=== PATIENT | female | born 1985 | race Caucasian/White ===

== ENCOUNTER 2019-04-18 04:54 | Inpatient (IN) | payer OTHER, SELFPAY ==
[2019-04-18] VITALS (20 sets, daily range): BP systolic 108–137; BP diastolic 67–80; PULSE 60–80; RESP 16–20; TEMP 36.1–37.3; O2SAT 95–100; BMI 42.1
[2019-04-18] MEDS: Lactated Ringers 1,000 ML 999 ML IV (05:35)
[2019-04-18 05:55] LABS: Hematocrit 35.3 % (37-47); Hemoglobin 11.9 g/dL (12.0-15.0); Mean Corp Hgb Conc 33.7 g/dL (32-36); Mean Corpuscular Hgb 28.4 pg (27.0-32.0); Mean Corpuscular Volume 84.2 fL (81-99); Mean Platelet Vol. 12.5 fl (6.2-12.0); Platelet Count 161 K/mm3 (150-450); RBC Distribution Width CV 14.4 % (11.6-14.6); RBC Distribution Width SD 43.6 fl (35.1-43.9); Red Blood Count 4.19 M/mm3 (4.2-5.4); White Blood Count 8.4 K/mm3 (4.4-11.0)
[2019-04-18 06:06] LABS: Protein, Urine (Random) 11.9 mg/dL (<11.9); Protein:Creat Ratio 119 mg/g CRE (0-200)
[2019-04-18 06:11] LABS: AST(SGOT) 16 U/L (15-37); Alanine Aminotransfer ALT/SGPT 14 U/L (13-56); Creatinine, Serum 0.67 mg/dL (0.55-1.02); EST Glomerular Filtration Rate 108 mL/min (>60); Est Glom Filt Rate - Afr Amer 131 mL/min (>60); Estimated Creatinine Clearance 107.47 ml/min; Uric Acid 6.8 mg/dL (2.6-6.0)
[2019-04-18 06:34] LABS: International Normalized Ratio 0.9; Prothrombin Time (Protime)PT. 12.1 SECONDS (11.7-14.9)
[2019-04-18 06:35] LABS: Partial Thromboplast Time 26.4 Seconds (24.1-36.2)
[2019-04-18] MEDS: Lactated Ringers 1,000 ML 150 ML IV (06:36)
[2019-04-18] MEDS: Sodium Citrate/Citric Acid 30 ML UDC PO (07:06)
[2019-04-18] MEDS: Cefazolin 2 GM in 0.9% Normal Saline 100 ML IV (07:23)
--- NOTE | 2019-04-18 07:36 | OP.PCM_ITS ---
Report of Operation Date of Procedure: 04/18/19 Surgery/Procedure Performed:: Repeat section with bilateral tubal ligation Description of Surgical Findings:: Normal maternal uterus and adnexa special education resource room teacher: Giselle Castro Type of Anesthesia:: Spinal Specimen's removed: Placenta Delivery Final JACLYN: 04/25/19 Gestational age: 39 Weeks and 0 Days Indications for : Repeat Elective , Desires elective sterilization Description of Procedure: Patient taken to OR where spinal anesthesia was placed. She was prepped and draped in normal sterile fashion in a dorsal supine position with a leftward tilt. After ensuring adequacy of anesthesia the Pfannensteil skin incision was made and carried through to the underlying fascia w/ a bovie. The fascia was incised in the midline and carried laterally with the Robert scissors. The rectus muscles were in the midline and the peritoneum was entered sharply. The bladder flap was dissected down with the Metzenbaum scissors and blunt dissection. The uterine incision was made with the scalpel and extended lateral ly w/ blunt dissection. The fetus was vertex and the head was brought to the incision in the flexed position. With good fundal pressure the head delivered The head was gently guided to allow delivery of anterior & posterior shoulders. No excess traction placed on head. Body delivered easily. The cord was clamped and cut after 1 minute delay and the handed off to waiting RN. The placenta was delivered w/ gentle traction and fundal massage and the uterus was exteriorized and cleared of all clots and debris. The uterine incision was closed with 1 vicryl suture in a running locked fashion. A second layer monocryl was used to imbricate the first layer and obtain hemostasis. 2 additional figure of 8 sutures were needed to obtain hemostasis. The uterus was returned to the peritoneal cavity which was cleared of all clots and debris. The right fallopian tube was grasped & doubly suture ligated. Tube segment excised & hemostasis confirmed at tubal site. Process repeated on the left side & again hemostasis confirmed. Pelvis was irrigated. The uterine incision was reexamined and found to be hemostatic. Some augusta was placed over the uterine incision due to the denuded areas. Tubal ligation sites were examined & again confirmed to be hemostatic & sutures intact. The parietal peritoneum was reapproximated with running 1 vicryl figure suture. The fascia was closed with looped PDS suture in a running standard fashion. The subcutaneous tissue was examined, any bleeding bovie cauterized. The subcutaneous tissue was reapproximated with 3-0 vicryl suture. The skin was closed in a subcuticular fashion by the GEODUCK DIVER with me present in the labor and delivery suite. I performed the remainder of the procedure w/ assistance. Amniotic Membrane Rupture Type: Artificial Amniotic Fluid Description: Clear Placenta Disposition: [facility] Drain: Gonsalves to straight drain Fluids Replaced: 2,000 ml Cord Entanglement: None Cord Vessel Description: 3 Vessels Infant Gender: Male - Hilario (1 minute): 9 (5 minute): 10 Delayed cord clamping: Yes Pre-op Antibiotic Given: Ancef 2 grams IV x1 Complications: None - Admit VTE Documentation VTE Present on Admission: No
--- NOTE | 2019-04-18 07:57 | FALS_PTH ---
PATIENT: ISADORA KEBEDE LOC: [facility] U#:[id number] AGE/SX: 33/F ROOM: WP010 RE04/18/[address]: Dr. Kenny France MD : 1985 BED: 1 DIS: 04/20/2019 SPEC #: [id number] RECD: 04/18/19 09:28 STATUS: MERCEDES REHussain #: [id number] EMMIE: 04/18/19 07:[address]: Kenny France DEPT: SURGICAL PATHOLOGY RECD BY: Leobardo Carty ENTERED: 04/18/19 10:20 SP TYPE: FALL TUBES OTHR DR: No Primary Care Phys Tissues: Fallopian tube Procedures: Surgery Specimen Level II HEADER OPERATION: Tubal ligation PRE-OP DIAGNOSIS: Sterilization TISSUE SUBMITTED: Fallopian tubes MICROSCOPIC DIAGNOSIS Bilateral fallopian tubes, tubal ligation: Completely transected segment of fallopian tubes, no pathologic diagnosis. SARAH:сергей 04/19/19 MICROSCOPIC DESCRIPTION Slides are reviewed. GROSS DESCRIPTION Received is one container labeled with the patient's name and not further designated. The specimen consists of two tubular pieces of encarnacion soft tissue with one of the pieces showing a suture which is not identified. The piece without suture measures 1 cm in length and 0.5 cm in diameter. The second piece with suture measures 0.7 cm in length and 0.4 cm in diameter. The entire specimen is submitted in two cassettes as follows: 1 - piece without suture, 2 - piece with suture. Both pieces will be sectioned after embedding. / SARAH:сергей 04/18/19 TC:4 CPT: 94693 x2
[2019-04-18 09:26] LABS: Pathology Specimen OB SEE PATHOLOGY REPORT
[2019-04-18] MEDS: Oxytocin 30 units/NS 500 ml 30 UNITS/500 ML IV.SOLN 167 UNITS IV (09:27)
[2019-04-18] MEDS: Lactated Ringers 1,000 ML 100 ML IV ×2 (12:30→21:51)
[2019-04-18] MEDS: Ketorolac 30 MG/ML Syringe IV ×2 (14:27→20:14)
[2019-04-18] MEDS: Ondansetron ODT 4 MG Tablet PO (18:25)
[2019-04-19] VITALS (10 sets, daily range): BP systolic 95–137; BP diastolic 61–84; PULSE 78–85; RESP 16–18; TEMP 35.5–37.1; O2SAT 97–100
[2019-04-19] MEDS: Ketorolac 30 MG/ML Syringe IV ×4 (02:40→20:13)
--- NOTE | 2019-04-19 03:02 | NURSING ---
report given to Whit PEDROZA
[2019-04-19] MEDS: 0.9% Saline Lock 10 ML Syringe 5 ML IV ×4 (04:07→20:13)
[2019-04-19 04:24] LABS: Hematocrit 27.2 % (37-47); Hemoglobin 8.9 g/dL (12.0-15.0); Mean Corp Hgb Conc 32.7 g/dL (32-36); Mean Corpuscular Volume 85.5 fL (81-99); Mean Platelet Vol. 12.1 fl (6.2-12.0); Platelet Count 114 K/mm3 (150-450); RBC Distribution Width CV 14.4 % (11.6-14.6); RBC Distribution Width SD 44.9 fl (35.1-43.9); Red Blood Count 3.18 M/mm3 (4.2-5.4); White Blood Count 7.6 K/mm3 (4.4-11.0)
--- NOTE | 2019-04-19 07:31 | PCM.PN.OB ---
Subjective: No complaints - Physical Exam General: Alert, Oriented x3 Abdomen: Soft, Non Tender, Non-Distended - ff mid & below umb Extremities: No Calf Tenderness Neurological: Cranial nerves II-XII grossly intact Vital Signs Temp Pulse Resp BP Pulse Ox 96 F L 78 16 100/64 97 04/19/19 04:00 04/19/19 04:00 04/19/19 05:55 04/19/19 04:00 04/19/19 05:55 Oxygen Delivery Method Room Air Weight: 253 lb 4 oz Body Mass Index (BMI) 42.1 Intake and Output for Last 24 Hours 04/17/19 04/18/19 04/19/19 23:59 23:59 23:59 Intake Total 7785.00 / 7785.00 1604.33 / 1604.33 Output Total 1175 / 1175 600 / 600 Balance 6610.00 / 6610.00 1004.33 / 1004.33 Laboratory Tests Past 24 Hrs 04/19/19 04:15 WBC 7.6 RBC 3.18 L Hgb 8.9 L Hct 27.2 L MCV 85.5 MCH 28.0 MCHC 32.7 RDW Std Deviation 44.9 H RDW Coeff of Delilah 14.4 Plt Count 114 L MPV 12.1 H Medical Necessity - Tobacco Use Smoking Status: Former smoker Assessment/Plan POD#2 GI - ADAT. Heme - HDS. Hb & platelets mildly decreased. Will repeat CBC tomorrow AM. - d/c shady ID - AF, no signs infection. Chtn - BP's normal. Routine care.
--- NOTE | 2019-04-19 12:29 | NURSING ---
1000 caruso cath dc'ed pt oob up to walk; pt gait steady
[2019-04-19] MEDS: Ferrous Sulfate 325 MG Tablet PO (12:39)
[2019-04-19] MEDS: Senna/Docusate Sodium 1 Tablet PO (12:39)
[2019-04-20 02:00] VITALS: BP 131/80; PULSE 80; RESP 16; TEMP 36.2
[2019-04-20] MEDS: 0.9% Saline Lock 10 ML Syringe 5 ML IV ×2 (02:01→08:42)
[2019-04-20] MEDS: Ketorolac 30 MG/ML Syringe IV ×2 (02:01→08:42)
[2019-04-20 06:06] LABS: Absolute Lymphocyte Count 1.91 X10^3/uL (0.83-4.51); Absolute Neutrophil Count 4.5 X10^3/uL (2.0-7.7); Basophil# 0.02 X10^3/uL; Basophil% 0.3 % (0-1); Eosinophils% 1.5 % (0-5); Hematocrit 28.1 % (37-47); Hemoglobin 9.3 g/dL (12.0-15.0); Lymphocyte # 1.91 X10^3/ul (4.0); Lymphocyte % 28.1 % (19-41); Mean Corp Hgb Conc 33.1 g/dL (32-36); Mean Corpuscular Hgb 28.4 pg (27.0-32.0); Mean Corpuscular Volume 85.9 fL (81-99); Mean Platelet Vol. 11.4 fl (6.2-12.0); Monocyte# 0.26 X10^3/uL; Monocyte% 3.8 % (0-10); NRBC Flagged by Analyzer 0 % (0-5); Neutrophil # 4.47 X10^3/uL (2.7-7.7); Neutrophil % 65.7 % (47-70); Platelet Count 132 K/mm3 (150-450); RBC Distribution Width CV 14.6 % (11.6-14.6); RBC Distribution Width SD 45.4 fl (35.1-43.9); Red Blood Count 3.27 M/mm3 (4.2-5.4); White Blood Count 6.8 K/mm3 (4.4-11.0)
[2019-04-20 08:00] VITALS: BP 140/80; PULSE 88; RESP 17; TEMP 36.9; O2SAT 99
--- NOTE | 2019-04-20 09:38 | PN.OBGYN_ITS ---
Subjective: Doing well per patient and nursing staff. Ambulating and taking PO without difficulty. Voiding and passing flatus. Bottle feeding. Lochia normal. Denies any headaches or visual changes, chest pain, SOB, or leg pain. Planning D/C home today. - Physical Exam General: Alert, Oriented x3, Cooperative HEENT: Atraumatic, Normocephalic Neck: Trachea Midline Lungs: Clear to auscultation, Normal air movement, Diminished Cardiovascular: Regular rate, Regular Rhythm, No murmurs Abdomen: Bowel Sounds Present, Soft, - - Dressing clean and dry, intact Extremities: - - BLE bilaterally non pitting Neurological: Deep Tendon Reflexes 2+/4 and Symmetrical Psych/Mental Status: Normal Affect Vital Signs Temp Pulse Resp BP Pulse Ox 97.1 F L 80 16 131/80 H 99 04/20/19 02:00 04/20/19 02:00 04/20/19 02:00 04/20/19 02:00 04/19/19 14:00 Oxygen Delivery Method Room Air Weight: 253 lb 4 oz Body Mass Index (BMI) 42.1 Intake and Output for Last 24 Hours 04/18/19 04/19/19 04/20/19 23:59 23:59 23:59 Intake Total 7785.00 / 7785.00 1604.33 / 1604.33 Output Total 1175 / 1175 2300 / 2300 Balance 6610.00 / 6610.00 -695.67 / -695.67 Laboratory Tests Past 24 Hrs 04/20/19 05:55 WBC 6.8 RBC 3.27 L Hgb 9.3 L Hct 28.1 L MCV 85.9 MCH 28.4 MCHC 33.1 RDW Std Deviation 45.4 H RDW Coeff of Delilah 14.6 Plt Count 132 L MPV 11.4 Immature Gran % (Auto) 0.600 Neut % (Auto) 65.7 Lymph % (Auto) 28.1 [place] % (Auto) 3.8 Eos % (Auto) 1.5 Baso % (Auto) 0.3 Absolute Neuts (auto) 4.5 Absolute Lymphs (auto) 1.91 Nucleated RBC % 0 Medical Necessity - Tobacco Use Smoking Status: Former smoker Assessment/Plan A:POD X2 Repeat LTCS Chronic HTN P: 1) Routine and discharge instructions 2) BP mildly elevated and increasing. Asymptomatic, no signs of Pre-e. consulted and patient chronic HTN. Ok for discharge at this time, no medication. Patient will take BP at home and call if remaining elevated 140/90. 3) D/C home today, follow up as scheduled for BP check and incision check.
--- NOTE | 2019-04-20 10:17 | NURSING ---
patient had a b/p of 140/89. patient told to rest and retook bp. was 140/80. provider notified.
--- NOTE | 2019-04-20 10:46 | DCINST_ITS ---
Discharge Diet: No Restrictions Discharge Activity: May Not Drive - for 2 weeks or while taking narcotic pain meds., May Shower, May Take a Tub Bath - in 7 days. May resume sexual activity in: 4-6 weeks Weight Bearing Status: Full weight bearing Lifting Restrictions: 20 pounds Additional Activity Instructions:: Nothing in the vagina for 4-6 weeks. You may return to work/school in 6 weeks. Call your doctor if your incision/area has: Continuous Slow Oozing, Sudden Increased Bleeding, Increased Pain/ Swelling, Increased Redness, Foul Smelling Discharge Call your doctor if you observe: Fever of 101 or Higher, Inability to urinate, Inability to have a bowel movement, Using more than one pad per hour, Shortness of breath, Chest pain, Increased palpitations (irregular heartbeat), Calf discomfort, Uncontrolled pain Suture Line Care: Avoid Pulling/Pushing, Avoid Pinching/Bending Additional Instructions: If you experience any of the following, contact your healthcare provider. * Bleeding that soaks a pad every hour for 2 hours * Fever 100.4 or higher * Unrelieved incision or abdominal pain * Swelling, redness, discharge or bleeding from your incision or episiotomy site * Your incision begins to separate * Problems urinating (including inability to urinate or burning while urinating). * Visual changes * Severe headache * Flu-like symptoms * Pain or redness in one of both of your breasts * Pain, warmth, tenderness or swelling in your legs, especially the calf area * Frequent nausea and vomiting * Symptoms of depression or anxiety If you experience any of the following, call 911 or go to the nearest Emergency Room. * Chest pain * Problems breathing * Seizure activity * Partial or complete paralysis of a body part, slurred speech, weakness or drooping of the face, or a sudden inability to walk or hold your balance Allergies/Adverse Reactions: Allergies azithromycin Allergy (Verified 04/18/19 05:15) Vomiting Penicillins Allergy (Verified 04/18/19 05:15) Rash Medications to take at Discharge Tablet 1 tab PO DAILY 08/18/17 Ibuprofen [Motrin] 600 mg PO Q6H PRN PRN #30 tab 04/20/19 The following prescriptions were given: Ibuprofen [Motrin] 600 mg PO Q6H PRN PRN #30 tab PRN Reason: Mild Pain (-11/04) Prescription Printed Follow-Up: Call to make an appointment with your doctor for an incision check in 1-2 weeks. You will also need a 6 week post- follow up appointment. Test results from this visit will be discussed in further detail at your follow- up appointment, if applicable. Please Follow Up With: Kenny France Primary Care Physician: Care Physician,No Primary [Primary Care Provider] -
--- NOTE | 2019-04-20 10:47 | PCM.DC.SUM ---
Discharge Date and Diagnosis Date of Admission: 08/18/17 Date of Discharge: 04/20/19 - Primary Discharge Diagnosis Repeat Low transverse section Hospital Course and Treatment Operations: - - Primary low transverse section Via Pfannenstiel skin incision Summary of Care Provided: The patient is a 33 year old F [at 39 weeks presented for repeat LTCS. Hospital course uncomplicated. Discharged home on POD #2] - Physical Exam Vital Signs Temp Pulse Resp BP Pulse Ox 98.4 F 88 17 140/80 H 99 04/20/19 08:00 04/20/19 08:00 04/20/19 08:00 04/20/19 08:00 04/20/19 08:00 Oxygen Delivery Method Room Air Weight: 253 lb 4 oz Body Mass Index (BMI) 42.1 Intake and Output for Last 24 Hours 04/18/19 04/19/19 04/20/19 23:59 23:59 23:59 Intake Total 7785.00 / 7785.00 1604.33 / 1604.33 Output Total 1175 / 1175 2300 / 2300 Balance 6610.00 / 6610.00 -695.67 / -695.67 Laboratory Tests Past 24 Hrs 04/20/19 05:55 WBC 6.8 RBC 3.27 L Hgb 9.3 L Hct 28.1 L MCV 85.9 MCH 28.4 MCHC 33.1 RDW Std Deviation 45.4 H RDW Coeff of Delilah 14.6 Plt Count 132 L MPV 11.4 Immature Gran % (Auto) 0.600 Neut % (Auto) 65.7 Lymph % (Auto) 28.1 [place] % (Auto) 3.8 Eos % (Auto) 1.5 Baso % (Auto) 0.3 Absolute Neuts (auto) 4.5 Absolute Lymphs (auto) 1.91 Nucleated RBC % 0 Discharge Diet: No Restrictions Discharge Activity: May Not Drive - for 2 weeks or while taking narcotic pain meds., May Shower, May Take a Tub Bath - in 7 days. May resume sexual activity in: 4-6 weeks Weight Bearing Status: Full weight bearing Additional Activity Instructions:: Nothing in the vagina for 4-6 weeks. You may return to work/school in 6 weeks. Call your doctor if your incision/area has: Continuous Slow Oozing, Sudden Increased Bleeding, Increased Pain/ Swelling, Increased Redness, Foul Smelling Discharge Call your doctor if you observe: Fever of 101 or Higher, Inability to urinate, Inability to have a bowel movement, Using more than one pad per hour, Shortness of breath, Chest pain, Increased palpitations (irregular heartbeat), Calf discomfort, Uncontrolled pain Suture Line Care: Avoid Pulling/Pushing, Avoid Pinching/Bending Home Medications: Medications to take at Discharge Tablet 1 tab PO DAILY 08/18/17 Ibuprofen [Motrin] 600 mg PO Q6H PRN PRN #30 tab 04/20/19 Following Prescrptions Were Given to Patient: Ibuprofen [Motrin] 600 mg PO Q6H PRN PRN #30 tab PRN Reason: Mild Pain (-11/04) Prescription Printed Primary Care Physician: Care Physician,No Primary [Primary Care Provider] - Please Follow Up With: Kenny France When: 2 weeks Please Follow Up With: Dr. Gomez When: 2 days Medical Necessity - Tobacco Use Smoking Status: Former smoker Meaningful Use Info Meaningful Use Diagnoses (Choose all that apply): None applicable
--- NOTE | 2019-04-20 12:20 | CM.ED ---
Social Work Referral Date:04/18/19 Date of Assessment: 04/20/19 Reason for Consult: Mother of baby (MOB) with history of depression and anxiety. Informant: Nursing staff, e-chart, and MOB Personal Status Mentation: MOB A&Ox3 Present during assessment: MOB, father of baby (FOB) and infant. Hx : 2 Hx Para: 1 Gender: Male Infant Name: Junior Alvarado (1min): 9 (5min):10 Care: Adequate Alleged father: Kd Alvarado Alleged father involved: Yes Length of Relationship with alleged father of baby: 5 years, of which MOB and FOB have been for 3 years . FOB Mental Health/AOD/Domestic Violence Hx: MOB denies. FOB Employment: [employer] Number of Children in the home: This will be second infant for MOB and FOB. This infant is now younger brother to Uriah Alvarado who is 18 months old. MOB and FOB stating that was planned for this infant. Custody Comments: MOB and FOB have custody of this and Uriah. Living Arrangements: MOB, FOB, Uriah and now this live together in a private home. Education: [employer] Employment: [employer], 2nd grade. Family Dynamics/Relationships: MOB reporting positive family and relationship dynamics. MOB denies any stressors in relation to family/supports. Supports: MOB identifies MOB's parents as well as FOB's parents for support. MOB's parents plan to be staying with MOB/FOB for the next week to assist with transition. MOB's parents have Uriah during this time as well. MOB/FOB reporting that it is a positive thing that family will be staying with them. FOB's parents live local. Transportation: No concerns. Substance Abuse Hx and Current Pattern of Use MOB denies any abuse/use. Mental Health Hx and Current Status MOB reporting to have a history of depression and anxiety. MOB stating that last panic attack was 3 years ago. MOB stating to have had depression when MOB was younger and does not see this an an issue at this time. MOB stating to be planning to speak with PCP about beginning medication again to manage mental health as MOB states I can get on edge and do not want to start panic attacks again. This social service assistant supporting MOB's decision to speak with PCP. MOB identifying FOB and MOB's parents as a positive support and assist MOB is coping. MOB denies any SI or HI. MOB reporting to be aware of signs and symptoms of post depression. MOB able to engage in conversation with this social service assistant about the importance of maintaining mental health. All questions answered. Items/Skills List for Infants Care Supplies: MOB reporting to have all needed supplies. Bonding With : MOB stating to feel a connection with and is planning to bottle feed as MOB did with Uriah. Observed Maternal/Paternal Child interaction: MOB holding infant during assessment. MOB gazing often towards infant. Emotional Assessment: MOB presenting with a pleasant and engaged affect. MOB voicing to be tearful at times and that this is normal. This social service assistant did broach topic of emotions after having a baby. MOB voicing to be aware of changes in emotions. MOB stating to typically cry things out and this is a coping skill for MOB. FOB voicing support of MOB's coping skill. Resources Provided MOB with resources on [employer] [facility], Help Me Grow, depression, safe sleeping, shaken baby syndrome. Interventions: No further referrals at this time. Plan: Infant to discharge to home with MOB, FOB and Uriah. Kwan CARMEN, JOSEF
[2019-04-20 13:30] VITALS: BP 117/70; PULSE 80; RESP 17; TEMP 36.7; O2SAT 99
--- NOTE | 2019-04-20 17:04 | PCM.HP.OB ---
History Date of Admission: 04/18/19 Final JACLYN: 04/25/19 Gestational age: 39 Weeks History of this : This is a 33 year-old, G [], P [], at 39 weeks gestational age. Allergies azithromycin Allergy (Verified 04/18/19 05:15) Vomiting Penicillins Allergy (Verified 04/18/19 05:15) Rash Home Medications: Home Medications Tablet 1 tab PO DAILY 08/18/17 RX: Ibuprofen [Motrin] 600 mg PO Q6H PRN PRN #30 tab 04/20/19 Smoking Status: Former smoker History Past Pregnancies: Past Pregnancies Delivery Date Name GA/Weeks Outcome Route Weight Infant Gender Labor Length Anesthesia Delivery Location Provider FOB Physical Exam Vitals: Vital Signs Temp Pulse Resp BP Pulse Ox 98.0 F 80 17 117/70 99 04/20/19 13:30 04/20/19 13:30 04/20/19 13:30 04/20/19 13:30 04/20/19 13:30 Assessment/Plan 33yo female for repeat Please see [facility] H&P. No changes.
== END 2019-04-20 13:30 | disposition home or self-care (01) | DRG 784 ==
PROVIDERS: Admitting Provider Obstetrics & Gynecology; Referring Provider Obstetrics & Gynecology; Visit Provider Obstetrics & Gynecology
PROC: 10D00Z1 Extraction of Products of Conception, Low, Open Approach (ICD-10-PCS; CPT 59514; principal; 2019-04-18 07:15)
DX: O34.211 Maternal care for low transverse scar from previous cesarean delivery (principal); O10.92 Unspecified pre-existing hypertension complicating childbirth; Z30.2 Encounter for sterilization; Z37.0 Single live birth; Z3A.39 39 weeks gestation of pregnancy; Z87.891 Personal history of nicotine dependence
CPT/HCPCS: 36415; 82565; 82570; 84156; 84450; 84460; 84550; 85025; 85027; 85610; 85730; 86850; 86900; 86901; 88302; 99218; J7120; A4216; G0378